=== PATIENT | female | born 1930 | race Caucasian/White ===

== ENCOUNTER 2016-11-11 06:51 | Outpatient (CLI) | payer MEDICARE, OTHER | END 2016-11-11 06:52 | DX: I10 Essential (primary) hypertension (principal); E78.5 Hyperlipidemia, unspecified ==

== ENCOUNTER 2017-05-14 16:08 | Outpatient (CLI) | payer MEDICARE, OTHER | END 2017-05-14 16:09 | disposition critical access hospital (66) | LOC: EMS 16:08 | PROVIDERS: ATTEND Surgery | DX: M25.521 Pain in right elbow (principal); W18.30XA Fall on same level, unspecified, initial encounter; Y92.030 Kitchen in apartment as the place of occurrence of the external cause ==

== ENCOUNTER 2017-05-14 16:28 | Emergency (ER) | payer MEDICARE, OTHER ==
--- NOTE | 2017-05-14 16:47 | ED Physician Documentation ---
PD HPI UPPER EXT INJURY - Stated complaint Stated Complaint: FALL - Chief complaint Chief Complaint: Ext Problem - History obtained from History obtained from: Patient, EMS - History of Present Illness Location: Right, Arm Type of injury: Fall (trip and fall at home) Where injury occurred: Home Timing - onset: How many hours ago (1) Timing - duration: Hours (1) Timing - details: Abrupt onset Pain level max: 5 Pain level now: 3 Improved by: Rest, Ice, Immobilization Worsened by: Moving, Palpating Associated symptoms: No: Weakness, Numbness, Tingling, Swelling Contributing factors: Prior ortho surgery (R shoulder replacement). No: Anticoagulated Similar symptoms before: Has not had sx before Recently seen: Not recently seen - Additonal information Additional information: states removing her water bottle from the fridge when she tripped and fell, landing on the R arm. Review of Systems Constitutional: denies: Fever, Chills Ears: denies: Ear pain Nose: denies: Rhinorrhea / runny nose, Congestion Throat: denies: Sore throat Cardiac: denies: Chest pain / pressure Respiratory: denies: Cough GI: denies: Abdominal Pain, Nausea, Vomiting, Diarrhea Skin: denies: Rash Musculoskeletal: denies: Neck pain, Back pain Neurologic: denies: Focal weakness, Numbness, Confused, Altered mental status, Headache, Head injury, LOC PD PAST MEDICAL HISTORY - Past Medical History Cardiovascular: Hypertension HEENT: Glaucoma - Past Surgical History Past Surgical History: Yes General: Appendectomy Ortho: Rotator cuff repair /HYDRAULIC REPAIRER: Hysterectomy - Present Medications Home Medications: Ambulatory Orders Medication Instructions Recorded Confirmed Aspirin [Aspir 81] 81 mg PO DAILY 03/16/13 05/14/17 Calcium Carbonate/Vitamin D3 1 each PO DAILY 03/16/13 05/14/17 [Caltrate 600 + D Chewable Tab] Hydrochlorothiazide 12.5 mg PO DAILY 03/16/13 05/14/17 Lisinopril 20 mg PO DAILY 03/16/13 05/14/17 Simvastatin [Zocor] 20 mg ORAL DAILY PM 03/16/13 05/14/17 Latanoprost 0.005% Ophth Drops 1 drops EACHEYE DAILY PM 05/14/17 05/14/17 [Xalatan Ophth Drops] - Allergies Allergies/Adverse Reactions: Allergies Allergy/AdvReac Type Severity Reaction Status Date / Time No Known Drug Allergies Allergy Verified 05/14/17 16:35 - Social History Does the pt smoke?: No Smoking Status: Never smoker Does the pt drink ETOH?: No Does the pt have substance abuse?: No - Immunizations Immunizations are current?: Yes - POLST Patient has POLST: No PD ED PE NORMAL - Vitals Vital signs reviewed: Yes - General General: Alert and oriented X 3, No acute distress - HEENT HEENT: Atraumatic, PERRL, Moist mucous membranes - Neck Neck: Supple, no meningeal sign, No bony TTP - Cardiac Cardiac: RRR - Respiratory Respiratory: No respiratory distress, Clear bilaterally - Derm Derm: Warm and dry - Extremities Extremities: Other (TTP over the R mid-distal humerus. NVI. O/w normal exam of the R UE including hand/wrist. There is an abrasion/puncture near the site of the fracture on the posterior aspect of the arm. 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, No motor deficit, No sensory deficit, Normal speech - Psych Psych: Normal mood, Normal affect Results - Vitals Vitals: Vital Signs - 24 hr 05/14/17 05/14/17 05/14/17 16:30 18:21 19:24 Temperature 36.4 C L Heart Rate 75 74 85 Respiratory 16 16 18 Rate Blood Pressure 138/84 H 143/82 H 147/53 H O2 Saturation 95 97 98 05/14/17 05/14/17 20:32 21:52 Temperature Heart Rate 83 77 Respiratory 18 18 Rate Blood Pressure 139/73 H 146/72 H O2 Saturation 98 97 Oxygen O2 Source Room air - Labs Labs: Laboratory Tests 05/14/17 05/14/17 17:50 18:38 WBC 11.9 H RBC 4.81 Hgb 14.6 Hct 44.6 MCV 92.6 MCH 30.3 MCHC 32.7 RDW 14.3 Plt Count 232 MPV 9.1 Neut # 10.4 H Lymph # 0.8 L Kimball # 0.6 Eos # 0.0 Baso # 0.1 Absolute Nucleated RBC 0.01 Nucleated RBC % 0.1 Sodium 139 Potassium 3.7 Chloride 101 Carbon Dioxide 25 Anion Gap 13.0 BUN 29 H Creatinine 1.4 H Estimated GFR (MDRD) 36 L Glucose 126 H Calcium 9.9 Total Bilirubin 0.5 AST 24 ALT 13 Alkaline Phosphatase 59 Total Protein 6.8 Albumin 4.0 Globulin 2.8 Albumin/Globulin Ratio 1.4 Lipase 37 - Rads (name of study) R humerus xray Radiology: Prelim report reviewed, EMP read contemporaneously, See rad report ( Periprosthetic right humerus fracture. Fully displaced) R shoulder xray Radiology: Prelim report reviewed, EMP read contemporaneously, See rad report ( Right shoulder arthroplasty in place. Humeral shaft fracture distal to the stem ) R elbow xray Radiology: Prelim report reviewed, EMP read contemporaneously, See rad report ( Unremarkable elbow radiography. Displaced mid humeral shaft fracture noted) PD MEDICAL DECISION MAKING - ED course Complexity details: reviewed results, re-evaluated patient, considered differential, d/w patient, d/w family, d/w tax credit le[employer] consultant ED course: 1649 - d/ Dr. Vanessa (ortho) who states that this will likely require operative repair and recommends transfer to [facility] or [facility] for this. 1844 - d/w [facility], states that they do not perform these surgeries there. Recommends [facility] vs 1899 - D/w Dr. Lao, ortho at [facility] who requests shoulder and elbow xrays prior to xfer and accepts pt. 2129 - Dr. Galvan (ED) also accepts in transfer. Given ancef 1g IV and tdap. Pt is right handed. Pain well controlled. Neurovascularly intact. Compartments remain soft. This document was made in part using voice recognition software. While efforts are made to proofread this document, sound alike and grammatical errors may occur. Departure - Departure Disposition: 02 Transfer Acute Care Hosp Clinical Impression: Humerus fracture Qualifiers: Encounter type: initial encounter Humerus Location: shaft Fracture type: open Fracture morphology: unspecified fracture morphology Laterality: right Qualified Code(s): S42.301B - Unspecified fracture of shaft of humerus, right arm, initial encounter for open fracture Condition: Stable
[2017-05-14] MEDS ORDERED: MORPHINE 2 MG/ML SYRINGE IVP STA ×2 (17:24→18:07)
[2017-05-14] MEDS ORDERED: SODIUM CHLORIDE FLUSH 0.9% 10 ML SYRINGE IVP ONE ×3 (17:44→19:24)
[2017-05-14] MEDS ORDERED: MORPHINE 2 MG/ML SYRINGE ONE ×2 (17:44→18:16)
--- NOTE | 2017-05-14 17:48 | XRAY Preliminary Report ---
Exam: XR HUMERUS RT IMPRESSION: There is displaced fracture through the mid to distal right humerus, approximately 2 cm d istal to the tip of the patient's humeral arthroplasty stem. [facility] SITE ID: [id number]
--- NOTE | 2017-05-14 17:50 | XRAY Report ---
EXAM: RIGHT HUMERUS RADIOGRAPHY EXAM DATE: 05/14/2017 05:07 PM. CLINICAL HISTORY: Fall/pain. COMPARISON: None. TECHNIQUE: 3 views. FINDINGS: Bones: There is displaced fracture through the mid to distal right humerus. There is approximately 3. 5 cm lateral displacement of the fracture. Joints: No evidence of dislocation. Patient has undergone right shoulder arthroplasty. The fracture i s approximately 2 cm distal to the tip of the humeral stem. Soft Tissues: No unexpected soft tissue findings. IMPRESSION: There is displaced fracture through the mid to distal right humerus, approximately 2 cm d istal to the tip of the patient's humeral arthroplasty stem. [facility] Referring Provider Line: [phone] SITE ID: [id number]
[2017-05-14 18:03] LABS: BASOPHILS # (AUTO) 0.1 10^3/uL (0.0-0.1); BASOPHILS % (AUTO) 0.7 %; EOSINOPHILS % (AUTO) 0.3 %; HCT - HEMATOCRIT 44.6 % (37.0-47.0); HGB - HEMOGLOBIN 14.6 g/dL (12.0-16.0); LYMPHOCYTES # (AUTO) 0.8 10^3/uL (1.5-3.5); LYMPHOCYTES % (AUTO) 6.9 %; MEAN CORPUSCULAR HEMOGLOBIN 30.3 pg (27.0-31.0); MEAN CORPUSCULAR HGB CONC 32.7 g/dL (32.0-36.0); MEAN CORPUSCULAR VOLUME 92.6 fL (81.0-99.0); MEAN PLATELET VOLUME 9.1 fL (7.9-10.8); MONOCYTES # (AUTO) 0.6 10^3/uL (0.0-1.0); NEUTROPHILS # (AUTO) 10.4 10^3/uL (1.5-6.6); NEUTROPHILS % (AUTO) 87.1 %; NUCLEATED RED BLOOD CELLS AUTO 0.1 /100WBC; RED BLOOD COUNT 4.81 10^6/uL (4.20-5.40); RED CELL DISTRIBUTION WIDTH 14.3 % (12.0-15.0); UNCORRECTED WHITE BLOOD COUNT 11.9 x10^3/uL; WHITE BLOOD COUNT 11.9 x10^3/uL (4.8-10.8)
[2017-05-14] MEDS ORDERED: ceFAZolin 1 GM in SODIUM CHLORIDE 0.9% MINIBAG 100 ML IV ONE (18:07)
[2017-05-14] MEDS ORDERED: ceFAZolin 1 GM VIAL ONE (18:16)
[2017-05-14 18:59] LABS: ALBUMIN/GLOBULIN RATIO 1.4 (1.0-2.2); BILIRUBIN,TOTAL 0.5 mg/dL (0.2-1.0); CALCIUM 9.9 mg/dL (8.5-10.3); CREATININE 1.4 mg/dL (0.4-1.0); POTASSIUM 3.7 mmol/L (3.5-5.0); TOTAL PROTEIN 6.8 g/dL (6.7-8.2)
[2017-05-14] MEDS ORDERED: TETANUS/DIPHTHERIA/PERTUSSIS 0.5 ML SYRINGE IM ONE ×2 (19:05→19:24)
--- NOTE | 2017-05-14 20:43 | XRAY Preliminary Report ---
Exam: XR SHOULDER 3 VIEW RT IMPRESSION: 1. Right shoulder arthroplasty in place. 2. Humeral shaft fracture distal to the stem. [facility] SITE ID: [id number]
--- NOTE | 2017-05-14 20:44 | XRAY Report ---
EXAM: RIGHT SHOULDER RADIOGRAPHY EXAM DATE: 05/14/2017 08:27 PM. CLINICAL HISTORY: Right shoulder pain s/p fall. COMPARISON: None. TECHNIQUE: 3 views. FINDINGS: Right shoulder arthroplasty in place, with no glenohumeral dislocation. Abnormal widening of the acro mioclavicular joint, likely due to lateral clavicle resection, without evidence of separation. Fractu re of the humeral shaft distal to the stem. IMPRESSION: 1. Right shoulder arthroplasty in place. 2. Humeral shaft fracture distal to the stem. [facility] Referring Provider Line: [phone] SITE ID: [id number]
--- NOTE | 2017-05-14 20:45 | XRAY Preliminary Report ---
Exam: XR ELBOW 3 VIEW RT IMPRESSION: 1. Unremarkable elbow radiography. 2. Displaced mid humeral shaft fracture noted. [facility] SITE ID: [id number]
--- NOTE | 2017-05-14 20:48 | XRAY Report ---
EXAM: RIGHT ELBOW RADIOGRAPHY EXAM DATE: 05/14/2017 08:27 PM. CLINICAL HISTORY: Right elbow pain s/p fall. COMPARISON: None. TECHNIQUE: 4 views. FINDINGS: Bones: No traumatic or destructive bone abnormalities at the elbow. Displaced midshaft fracture of th e humerus noted. Joints: Normal. No effusion. No subluxation. Soft Tissues: Soft tissue calcification noted adjacent to the radial shaft. IMPRESSION: 1. Unremarkable elbow radiography. 2. Displaced mid humeral shaft fracture noted. [facility] Referring Provider Line: [phone] SITE ID: [id number]
[2017-05-14] MEDS ORDERED: SODIUM CHLORIDE 0.9% 1,000 ML IV ONE (21:32)
[2017-05-14 21:53] VITALS: BP 146/72
== END 2017-05-14 22:41 | disposition short-term general hospital (02) ==
LOC: EDUNIT# → ED 16:28
DX: S42.301B Unspecified fracture of shaft of humerus, right arm, initial encounter for open fracture (principal); W01.0XXA Fall on same level from slipping, tripping and stumbling without subsequent striking against object, initial encounter; Y92.019 Unspecified place in single-family (private) house as the place of occurrence of the external cause; I10 Essential (primary) hypertension; Z79.82 Long term (current) use of aspirin; Z23 Encounter for immunization
CPT/HCPCS: 36415; 73030; 73060; 73080; 80053; 83690; 85025; 90471; 90715; 96361; 96365; 96375; 99284; 99285; J2270

== ENCOUNTER 2017-05-14 22:44 | Outpatient (CLI) | payer MEDICARE, OTHER | END 2017-05-14 22:45 | disposition short-term general hospital (02) | LOC: EMS 22:44 | PROVIDERS: ATTEND Surgery | DX: S42.301A Unspecified fracture of shaft of humerus, right arm, initial encounter for closed fracture (principal); W18.39XA Other fall on same level, initial encounter | CPT/HCPCS: A0425; A0426; A0429 ==

== ENCOUNTER 2018-11-12 08:00 | Outpatient (CLI) | payer MEDICARE, OTHER ==
[2018-11-12 13:44] LABS: BASOPHILS % (AUTO) 0.8 %; EOSINOPHILS # (AUTO) 0.1 10^3/uL (0.0-0.7); EOSINOPHILS % (AUTO) 1.9 %; HGB - HEMOGLOBIN 14.3 g/dL (12.0-16.0); LYMPHOCYTES # (AUTO) 1.2 10^3/uL (1.5-3.5); LYMPHOCYTES % (AUTO) 26.5 %; MEAN CORPUSCULAR HEMOGLOBIN 30.5 pg (27.0-31.0); MEAN CORPUSCULAR HGB CONC 33.2 g/dL (32.0-36.0); MONOCYTES # (AUTO) 0.4 10^3/uL (0.0-1.0); MONOCYTES % (AUTO) 8.6 %; NEUTROPHILS # (AUTO) 2.9 10^3/uL (1.5-6.6); NEUTROPHILS % (AUTO) 62.2 %; PLT - PLATELET COUNT 214 10^3/uL (130-450); RED CELL DISTRIBUTION WIDTH 13.5 % (12.0-15.0); WHITE BLOOD COUNT 4.6 x10^3/uL (4.8-10.8)
[2018-11-12 13:56] LABS: ALBUMIN 4.1 g/dL (3.2-5.5); ALBUMIN/GLOBULIN RATIO 1.4 (1.0-2.2); ALKALINE PHOSPHATASE 62 IU/L (42-121); ALT ALANINE AMINOTRANSFERASE 10 IU/L (10-60); AST ASPARTATE AMINOTRANSFERASE 22 IU/L (10-42); BILIRUBIN,TOTAL 0.9 mg/dL (0.2-1.0); BUN - BLOOD UREA NITROGEN 35 mg/dL (6-20); CALCIUM 9.7 mg/dL (8.5-10.3); CARBON DIOXIDE - CO2 24 mmol/L (21-32); CHLORIDE 108 mmol/L (101-111); CHOL/HDL RATIO 2.6 (<4.4); CHOLESTEROL 161 mg/dL; GFR - MDRD 52 (>89); GLUCOSE 108 mg/dL (70-100); HDL CHOLESTEROL 63 mg/dL; LDL CHOLESTEROL,CALCULATED 83 mg/dL; LDL/HDL RATIO 1.3 (<4.4); SODIUM 142 mmol/L (135-145); VLDL CHOLESTEROL 15 mg/dL
== END 2018-11-12 23:59 | disposition home or self-care (01) ==
LOC: LAB.WCP 08:00
PROVIDERS: ATTEND Physician Assistant Medical
DX: I10 Essential (primary) hypertension (principal); E78.5 Hyperlipidemia, unspecified
CPT/HCPCS: 36415; 80053; 80061; 83721; 85025